=== PATIENT | male | born 1985 | race American Indian/Alaskan Native ===

== ENCOUNTER 2022-04-28 08:02 | Emergency (ER) | payer MEDICAID ==
[2022-04-28] MEDS ORDERED: levETIRAcetam 1000 MG/NS 0.75% 1,000 MG/100 ML BAG IV ONE (08:21)
--- NOTE | 2022-04-28 08:28 | Emergency Department Report ---
ED Seizure HPI - General Chief Complaint: Seizure Stated Complaint: SEIZURES Time Seen by Provider: 04/28/22 08:20 Source: patient, EMS Mode of arrival: Stretcher Limitations: No Limitations - History of Present Illness Initial Comments: Patient is a 36-year-old male brought in by EMS for reported seizure. States he is compliant with his medications. On arrival patient is mildly postictal. He is unaware of preceding events. His only complaint is being cold. Requests blanket. - Related Data Home Medications Medication Instructions Recorded Confirmed Last Taken Divalproex Sodium [Depakote 125 mg PO QDAY 04/28/22 04/28/22 Unknown Sprinkle] risperiDONE [RisperDAL] 1 mg PO QDAY 04/28/22 04/28/22 Unknown Allergies Allergy/AdvReac Type Severity Reaction Status Date / Time No Known Allergies Allergy Verified 04/28/22 08:06 ED Review of Systems ROS: Stated complaint: SEIZURES Other details as noted in HPI Constitutional: denies: chills, fever Respiratory: denies: cough, shortness of breath, wheezing Cardiovascular: denies: chest pain, palpitations Gastrointestinal: denies: abdominal pain, nausea, diarrhea Genitourinary: denies: urgency, dysuria Skin: denies: rash, lesions Neurological: denies: headache, weakness Psychiatric: denies: anxiety, depression ED Past Medical Hx - Medications Home Medications: Home Medications Medication Instructions Recorded Confirmed Last Taken Type Divalproex Sodium [Depakote 125 mg PO QDAY 04/28/22 04/28/22 Unknown History Sprinkle] risperiDONE [RisperDAL] 1 mg PO QDAY 04/28/22 04/28/22 Unknown History ED Physical Exam - General Limitations: No Limitations General appearance: postictal (Mildly postictal. Patient able to answer questions and follow commands.) - Head Head exam: Present: atraumatic, normocephalic - Respiratory Respiratory exam: Present: normal lung sounds bilaterally. Absent: respiratory distress - Cardiovascular Cardiovascular Exam: Present: regular rate, normal rhythm. Absent: systolic murmur, diastolic murmur, rubs, gallop - GI/Abdominal GI/Abdominal exam: Present: soft. Absent: distended, tenderness - Rectal Rectal exam: Present: deferred - Neurological Exam Neurological exam: Present: alert, oriented X3 (Oriented to person only) - Psychiatric Psychiatric exam: Present: normal affect, normal mood - Skin Skin exam: Present: warm, dry, intact, normal color ED Course Vital Signs 04/28/22 04/28/22 04/28/22 08:02 08:28 09:16 Pulse Rate 75 59 L 47 L Respiratory 11 L Rate Blood Pressure 95/52 Blood Pressure 127/70 [Left] O2 Sat by Pulse 97 99 99 Oximetry 04/28/22 04/28/22 04/28/22 09:30 09:46 10:06 Pulse Rate 47 L 50 L Respiratory 13 10 L Rate Blood Pressure 98/51 99/49 Blood Pressure [Left] O2 Sat by Pulse 100 100 97 Oximetry 04/28/22 04/28/22 04/28/22 10:46 11:00 11:16 Pulse Rate 51 L 48 L 63 Respiratory 11 L 12 16 Rate Blood Pressure 93/48 99/44 93/52 Blood Pressure [Left] O2 Sat by Pulse Oximetry 04/28/22 04/28/22 04/28/22 11:18 11:30 11:45 Pulse Rate 65 52 L Respiratory 18 12 13 Rate Blood Pressure 98/53 104/50 Blood Pressure [Left] O2 Sat by Pulse Oximetry 04/28/22 04/28/22 04/28/22 12:00 12:16 12:30 Pulse Rate 55 L 54 L 53 L Respiratory 15 12 12 Rate Blood Pressure 104/50 104/55 100/58 Blood Pressure [Left] O2 Sat by Pulse Oximetry ED Medical Decision Making - Lab Data Result diagrams: 04/28/22 08:28 04/28/22 13:02 - Medical Decision Making 36-year-old male with history of seizures brought in by EMS after having a seizure. He was loaded with 1 g of Keppra. Chemistry significant for serum potassium of 5.5 and glucose of 70. Patient was given oral Kayexalate, insulin and dextrose. On repeat chemistry serum glucose is 90. Serum potassium was 4.6. Patient had no seizure activity while in the emergency department. He is alert and oriented x4. Stable for discharge. Critical care attestation.: If time is entered above; I have spent that time in minutes in the direct care of this critically ill patient, excluding procedure time. ED Disposition Clinical Impression: Seizure Disposition: 01 HOME / SELF CARE / HOMELESS Is pt being admited?: No Does the pt Need Aspirin: No Condition: Stable Instructions: Seizure, Adult, [id number] Time of Disposition: 14:28
[2022-04-28 08:58] LABS: Hematocrit 41.3 % (35.5-45.6); Hemoglobin 13.7 gm/dl (11.8-15.2); Mean Corpuscular HGB Conc 33 % (32-34); Mean Corpuscular Volume 94 fl (84-94); Platelet Count 279 K/mm3 (140-440); Red Cell Distribution Width 12.7 % (13.2-15.2)
[2022-04-28 09:11] LABS: Calcium 9.7 mg/dL (8.4-10.2)
[2022-04-28] MEDS ORDERED: SODIUM CHLORIDE 0.9% 1000 ML 1,000 ML IV ONE (09:29)
[2022-04-28] MEDS ORDERED: SODIUM POLYSTYRENE 15 GM/60 ML ORAL LIQD PO ONE (09:30)
[2022-04-28] MEDS ORDERED: INSULIN REGULAR, HUMAN 100 UNITS/1 ML IV ONE ×2 (09:31→13:05)
[2022-04-28] MEDS ORDERED: DEXTROSE 50% IN WATER (25GM) 50 ML VIAL IV NR (09:31)
[2022-04-28] MEDS ORDERED: KETOROLAC 30 MG/1 ML INJ IV ONE (11:01)
[2022-04-28] MEDS ORDERED: DEXTROSE 50% IN WATER (25GM) 50 ML SYRINGE IV ONE (13:30)
[2022-04-28 13:55] LABS: BUN/Creatinine Ratio 8; Blood Urea Nitrogen 11 mg/dL (9-20); Calcium 9.4 mg/dL (8.4-10.2); Hemolysis Index 8
[2022-04-28 15:23] VITALS: BP 103/42
== END 2022-04-28 15:24 | disposition home or self-care (01) ==
LOC: ED 08:02
DX: R56.9 Unspecified convulsions (principal)
CPT/HCPCS: 36415; 80048; 82962; 85027; 96361; 96365; 96375; 99284; J1885; J1953; J3490; J7030; Q9967; J1815